=== PATIENT | female | born 1990 | race Caucasian/White ===

== ENCOUNTER 2019-07-29 18:21 | Emergency (ER) | payer OTHER ==
[~2019-07-29] VITALS: Ht 165.1 cm; Wt 74.0 kg
[2019-07-29 18:35] VITALS: BP 111/78
== END 2019-07-29 20:03 | disposition home or self-care (01) ==
LOC: ED 19:57
DX: K59.00 Constipation, unspecified (principal); R11.10 Vomiting, unspecified
CPT/HCPCS: 74021; 99283